=== PATIENT | female | born 1955 | race Caucasian/White ===

== ENCOUNTER 2019-02-19 08:49 | Outpatient (CLI) | payer OTHER ==
[2019-02-19] MEDS ORDERED: Iopamidol 370 76% 100 ML VIAL ONE (09:00)
--- NOTE | 2019-02-19 10:23 | CT ---
CT ABDOMEN WITH AND WITHOUT IV CONTRAST WITH ADRENAL PROTOCOL: HISTORY: Left adrenal mass. FINDINGS: The lung bases are clear. The liver, spleen, pancreas, right adrenal gland, and right kidney are nor mal. There is a nonenhancing, 15 mm, partially exophytic mass arising from the left anterior renal cortex, which does not meet all criteria for a simple cyst. There is a 4 x 3.5 x 3 cm solid left adrenal mass, which demonstrates enhancement on the delayed imag es and no wash-out. The attenuation values are 26 Hounsfield units on the noncontrasted study, 26 Ho unsfield units on the early post contrast study, and 51 Hounsfield units on the delayed images. No free air, free fluid, or lymphadenopathy is seen in the abdomen. The small bowel loops are not ab normally dilated. There is colonic diverticulosis. There are vascular calcifications without eviden ce of aneurysmal dilatation of the abdominal aorta. Degenerative changes are present in the spine. IMPRESSION: 1. A 4 cm solid left adrenal mass. The mass does not correspond to the characteristics of a benign adenoma and is a suspicious finding. Surgical consultation is recommended. 2. A 1.5 cm indeterminate, nonenhancing left renal mass. This should be evaluated with a renal ultr asound. 3. Colonic diverticulosis. POS: OFF
== END 2019-02-19 08:50 | disposition home or self-care (01) ==
LOC: NAV CT 08:49
PROVIDERS: ATTEND Family Medicine
DX: E27.8 Other specified disorders of adrenal gland (principal); N28.89 Other specified disorders of kidney and ureter; K57.30 Diverticulosis of large intestine without perforation or abscess without bleeding
CPT/HCPCS: 74170; Q9967